=== PATIENT | female | born 1945 | race Caucasian/White ===

== ENCOUNTER 2022-06-11 10:43 | Outpatient (CLI) | payer MEDICARE, SELFPAY | END 2022-06-11 10:44 | disposition home or self-care (01) | LOC: ANHAUDIO 10:44 | PROVIDERS: PCP Family Medicine; Visit Provider Otolaryngology | DX: H90.3 Sensorineural hearing loss, bilateral (principal) | CPT/HCPCS: 92557; 92567 ==